=== PATIENT | male | born 1950 | race Caucasian/White ===

== ENCOUNTER 2020-08-25 13:17 | Outpatient (REF) | payer MEDICARE, MEDICAID, SELFPAY ==
--- NOTE | 2020-08-28 11:19 | MHC.AU.MED ---
Medical Clearance for Hearing Instrumentation Date: 08/28/20 Patient Name: Mehrdad Stokes Date of : [address] Fernandes, We have seen your patient on 08/25/2020 and have determined that they are a candidate for amplification (See accompanying report). Specifically, they would benefit from: Hearing aid use in both ears There is a statute that addresses Medical Evaluation Requirements prior to fitting a patient with a hearing aid. According to [place] statute [facility] CMR:6.03(1), (a) General. Except as provided in 265 CMR 6.03(1)(b), a teacher hearing impaired shall not sell a hearing aid unless the prospective user has presented to the teacher hearing impaired a written statement signed by a licensed physician that states that the patient's hearing loss has been medically evaluated and the patient may be considered a candidate for a hearing aid. The medical evaluation must have taken place within the preceding six months. Please note: Due to the [place] Statute referenced above, we cannot accept a signature other than that of a licensed physician. BUSINESS SYSTEMS LEAD and PA signatures cannot be accepted. I am in agreement with the above recommendation. There is no medical contraindication for hearing instrumentation. Physician Signature Date Physician Name (Printed)
--- NOTE | 2020-08-28 15:04 | MHC.AU.P13 ---
Adult Audiological Evaluation Date of Visit: 08/25/20 Reason for Appointment: History of hearing loss. Patient arrives to determine if there has been a change in hearing. Has hearing been tested previously?: Yes Previous Hearing Test Results: 12/15/2019 at this clinic- Moderate sloping to profound sensorineural hearing loss bilaterally Medical History: Medical History: Genetic Disorders Head Injury Otoscopy: Right Ear: Unremarkable Left Ear: Unremarkable Tympanometry: Right Ear: Normal Middle Ear System (Type A) Left Ear: Normal Middle Ear System (Type A) Hearing Evaluation: Transducer(s) Used: Insert Earphones Method: Conventional Audiometry Stimuli Used: Pure Tones Right Ear: Description of Hearing: Moderately-severe to profound sensorineural hearing loss Left Ear: Description of Hearing: Moderately-severe to profound sensorineural hearing loss High Frequency Audiometry: High Frequency Audiometry: Speech Awareness Threshold (SAT): Right Ear: 65 dBHL Left Ear: 70 dBHL Comparison: Compared to the most recent evaluation: Thresholds have decreased bilaterally. Recommendations: Recommendations: Audiological re-evaluation in one year. Hearing Aid Fitting will be scheduled when all materials arrive. Diagnosis: Primary Diagnosis: H90.3 Bilateral Sensorineural Hearing Loss Secondary Diagnosis: N/A Services Performed: Services Performed: Pure Tone- Air & Bone (CPT 12363) Speech Audiometry Threshold, with Speech Recognition (CPT 90153) Tympanometry (CPT 13544) Signature: Student/Clinical Fellow: No I have reviewed/agreed with student/fellow documentation: N/A Provider: Mike Wills, [facility]
== END 2020-08-25 13:18 | disposition home or self-care (01) ==
LOC: HO.SH 13:17
PROVIDERS: Visit Provider Internal Medicine
DX: H90.3 Sensorineural hearing loss, bilateral (principal)
CPT/HCPCS: 92553; 92555; 92567; 92591; V5275

== ENCOUNTER 2020-09-21 08:45 | Outpatient (REF) | payer MEDICARE, MEDICAID, SELFPAY ==
--- NOTE | 2020-09-21 10:14 | MHC.AU.P13 ---
Hearing Instrument Fitting- Adult- Binaural Date of Visit: 09/21/20 Hearing Instruments Dispensed: Right Ear: Healthcare Receptionist: Denise Model: Jemal 1600 R ITE Serial Number: [id number] Warranty: 10/05/2023 Battery Size: Rechargeable Type of Wax Guard: DENISE HEAR CLEAR Left Ear: Healthcare Receptionist: Denise Model: Jemal 1600 R ITE Serial Number: [id number] Warranty: 10/05/2023 Battery Size: Rechargeable Type of Wax Guard: DENISE HEAR CLEAR Accessories/Assistive Technology: T Custom Director Of [employer] #[id number] Summary of Fitting: Patient arrived for fitting, accompanied by his aide Nataly. Hearing aids appear to fit well. Feedback canceller was run. Experience level set to 2, as patient was visibly uncomfortable with any higher levels. Gain taken down an additional two steps for patient comfort. Patient appeared to hear his aide and myself well. Hearing aid care and use practiced and discussed. Patient was able to insert the left hearing aid correctly on the first try, but struggled with the right side and was beginning to get frustrated. Nataly said she would practice with him at home. Patient was able to place the hearing aids on the diving fisher correctly. Recommendations: Recommendations: Please call our clinic with any questions or concerns. Recommendations (Other): Hearing aid follow-up scheduled for 10/05/2020. Diagnosis Code(s): Primary Diagnosis: H90.3 Bilateral Sensorineural Hearing Loss Services Performed: Hearing Aid Evaluation and Earmold: Hearing Instrument Services: BCU-[id number] 2 Hearing Aid Dispensing: Binaural Dispensing Fee Fitting (Other): Fitting/Orientation/Checking of Hearing Aid Conformity Evaluation, Real Ear, Functional Testing Assorted Hearing Aid Service: Number of Individual Battery Cells: Packages of Batteries: Accessory Billing Place Snow: Signature: Provider: Mike Wills, CCC-A
== END 2020-09-21 08:46 | disposition home or self-care (01) ==
LOC: HO.HAP 08:45
PROVIDERS: PCP Internal Medicine; Referring Provider Internal Medicine; Visit Provider Internal Medicine
DX: Z46.1 Encounter for fitting and adjustment of hearing aid (principal)
CPT/HCPCS: V5011; V5020; V5160; V5260

== ENCOUNTER 2020-10-05 10:43 | Outpatient (REF) | payer MEDICARE, MEDICAID, SELFPAY | END 2020-10-05 10:44 | disposition home or self-care (01) | LOC: HO.HAP 10:43 | PROVIDERS: PCP Internal Medicine; Referring Provider Internal Medicine; Visit Provider Internal Medicine | DX: Z13.89 Encounter for screening for other disorder (principal) | CPT/HCPCS: 92700 ==

== ENCOUNTER 2021-01-30 15:55 | Outpatient (REF) | payer SELFPAY | END 2021-01-30 15:56 | disposition home or self-care (01) | LOC: HO.HAP 15:55 | PROVIDERS: Visit Provider Internal Medicine | DX: Z46.1 Encounter for fitting and adjustment of hearing aid (principal) | CPT/HCPCS: V5267 ==

== ENCOUNTER 2021-02-19 09:34 | Outpatient (REF) | payer MEDICARE, MEDICAID, SELFPAY | END 2021-02-19 09:35 | disposition home or self-care (01) | LOC: HO.SH 09:34 | PROVIDERS: Visit Provider Internal Medicine | DX: Z13.89 Encounter for screening for other disorder (principal) ==

== ENCOUNTER 2021-06-18 10:44 | Outpatient (REF) | payer MEDICARE, MEDICAID, SELFPAY | END 2021-06-18 10:45 | disposition home or self-care (01) | LOC: HO.HAP 10:44 | PROVIDERS: Visit Provider Internal Medicine | DX: Z13.89 Encounter for screening for other disorder (principal) ==

== ENCOUNTER 2021-06-26 09:40 | Outpatient (REF) | payer MEDICARE, MEDICAID, SELFPAY | END 2021-06-26 09:41 | disposition home or self-care (01) | LOC: HO.HAP 09:40 | PROVIDERS: Visit Provider Internal Medicine | DX: Z13.89 Encounter for screening for other disorder (principal) ==

== ENCOUNTER 2021-10-24 12:55 | Outpatient (REF) | payer MEDICARE, MEDICAID, SELFPAY ==
--- NOTE | 2021-10-24 13:14 | MHC.AU.P13 ---
Hearing Instrument Problem Date of Visit: 10/24/21 Right Ear: Mortar Mixer: Sukhdeep Model: Jemal 1600 R ITE Serial Number: [id number] Repair Warranty: 10/05/2023 Loss and Damage Warranty: 10/05/2023 Battery Size: Rechargeable Type of Wax Guard: SUKHDEEP HEAR CLEAR Dispensed By: [facility] Date of Fittin09/21/2020 Left Ear: Mortar Mixer: Sukhdeep Model: Jemal 1600 R ITE Serial Number: [id number] Repair Warranty: 10/05/2023 Loss and Damage Warranty: 10/05/2023 Battery Size: Rechargeable Type of Wax Guard: SUKHDEEP HEAR CLEAR Dispensed By: [facility] Date of Fittin09/21/2020 Follow-Up Summary: Hearing aids dropped off - not working. Both aids cleaned and wax guards replaced - now amplifying clearly. Recommendations: Recommendations: Hearing instrument follow-up or maintenance as needed. Diagnosis Code(s): Primary Diagnosis: H90.3 Bilateral Sensorineural Hearing Loss Signature: Provider: ESHA Santana-
== END 2021-10-24 12:56 | disposition home or self-care (01) ==
LOC: HO.HAP 12:55
PROVIDERS: Visit Provider Internal Medicine
DX: Z13.89 Encounter for screening for other disorder (principal)

== ENCOUNTER 2022-03-01 10:49 | Outpatient (REF) | payer MEDICARE, MEDICAID, SELFPAY | END 2022-03-01 10:50 | disposition home or self-care (01) | LOC: HO.HAP 10:49 | PROVIDERS: Visit Provider Internal Medicine | DX: Z13.89 Encounter for screening for other disorder (principal) ==

== ENCOUNTER 2022-09-11 14:12 | Outpatient (REF) | payer SELFPAY | END 2022-09-11 14:13 | disposition home or self-care (01) | LOC: HO.HAP 14:12 | PROVIDERS: Visit Provider Internal Medicine | DX: Z46.1 Encounter for fitting and adjustment of hearing aid (principal); H90.3 Sensorineural hearing loss, bilateral | CPT/HCPCS: V5267 ==

== ENCOUNTER 2022-12-25 11:04 | Outpatient (REF) | payer MEDICARE, MEDICAID, SELFPAY ==
--- NOTE | 2022-12-25 14:54 | MHC.AU.HA3 ---
Hearing Instrument Follow-Up- Binaural Date of Visit: 12/25/22 Right Ear: Make, Model, Color, Serial Number: Denise Joaquin 1600 ITE R, #[id number] Electrical Designer Repair Warranty: 10/05/2023 Electrical Designer Loss and Damage Warranty: 10/05/2023 Battery Size: Rechargeable Type of Wax Guard: DENISE HEAR CLEAR Dispensed By: [facility] Date of Fittin09/21/2020 Left Ear: Make, Model, Color, Serial Number: Denise Joaquin 1600 ITE R, #[id number] Electrical Designer Repair Warranty: 10/05/2023 Electrical Designer Loss and Damage Warranty: 10/05/2023 Battery Size: Rechargeable Type of Wax Guard: DENISE HEAR CLEAR Dispensed By: [facility] Date of Fittin09/21/2020 Follow-Up Summary: Patient and his caregiver report his hearing aids (Denise Jemal ITEs) are not working. The right side of the high school mathematics teacher is also not flashing green when the hearing aid is on it. He brought his previous hearing aids (Oticon Ting BTEs) that he has been using as backups. He reports the tubing has been falling out of the molds on the older instruments. The [facility] hearing aids and high school mathematics teacher were inspected. The left side is amplifying, but is very weak. The right side is not turning on. The Denise hearing aids and high school mathematics teacher were sent to [facility] for repair. On the Oticon instruments, the molds were retubed. They are functional and will serve as back-ups until the [facility] hearing aids return from repair. He was dispensed 12 batteries to get him by until his hearing aids return. Recommendations: Patient's residence will be contacted when materials have arrived. The [facility] hearing aids have no manual on/off button; therefore, to send them out for repair, I had to set them in Inspire to [place]. When they return, they will need to be set back to the 06/26/2021 settings. Diagnosis Code(s): Primary Diagnosis: H90.3 Bilateral Sensorineural Hearing Loss Signature: Provider: Gurpreet Wlils, [facility] [place]-[facility]
== END 2022-12-25 11:05 | disposition home or self-care (01) ==
LOC: HO.HAP 11:04
PROVIDERS: Visit Provider Internal Medicine
DX: Z46.1 Encounter for fitting and adjustment of hearing aid (principal); H90.3 Sensorineural hearing loss, bilateral
CPT/HCPCS: 92593; V5266

== ENCOUNTER 2023-01-03 13:43 | Outpatient (REF) | payer MEDICARE, MEDICAID, SELFPAY | END 2023-01-03 13:44 | disposition home or self-care (01) | LOC: HO.HAP 13:43 | PROVIDERS: Visit Provider Internal Medicine | DX: Z13.89 Encounter for screening for other disorder (principal) ==

== ENCOUNTER 2023-03-27 13:03 | Outpatient (REF) | payer SELFPAY | END 2023-03-27 13:04 | disposition home or self-care (01) | LOC: HO.HAP 13:03 | PROVIDERS: Visit Provider Internal Medicine | DX: Z46.1 Encounter for fitting and adjustment of hearing aid (principal); H90.3 Sensorineural hearing loss, bilateral | CPT/HCPCS: V5267 ==

== ENCOUNTER 2023-09-05 12:04 | Outpatient (REF) | payer MEDICARE, MEDICAID, SELFPAY ==
--- NOTE | 2023-09-05 14:36 | MHC.AU.HA3 ---
Hearing Instrument Follow-Up- Binaural Date of Visit: 09/05/23 Right Ear: Kj, Model, Color, Serial Number: Sukhdeep Joaquin 1600 ITE R SN: [id number] Color: Clear/[place] Long Term Repair Warranty: 10/05/2023 Long Term Loss and Damage Warranty: 10/05/2023 [facility] Service Plan: 09/21/2021 Battery Size: Rechargeable Type of Wax Guard: HearClear Dispensed By: [facility] Date of Fittin09/21/2020 Left Ear: Kj, Model, Color, Serial Number: Sukhdeep Paz ITE R SN: [id number] Color: Clear/[place] Long Term Repair Warranty: 10/05/2023 Long Term Loss and Damage Warranty: 10/05/2023 [facility] Service Plan: 09/21/2021 Battery Size: Rechargeable Type of Wax Guard: HearClear Dispensed By: [facility] Date of Fittin09/21/2020 Follow-Up Summary: Both Sukhdeep hearing aids, ring facer, cord, and wall plug as well as older Oticon Ting 2 BTE hearing aids were dropped off. The Sukhdeep hearing aids reportedly are not working and not holding a charge. Initially, the hearing aids were charging intermittently (LED light on ring facer would come on some times but not other times). However, the hearing aids and charging posts were extremely dirty and the wax guards were plugged. Cleaned both hearing aids and charging posts. Replaced wax guards. Connected to [employer] software and ran the diagnostic test with all components passing. After cleaning, hearing aids were charging appropriately in ring facer. The old hearing aids were dropped off and requested to be cleaned. Oticon Ting 2 BTEs (SNs: [id number] and [id number]) with acrylic skeleton ear molds. Cleaned and retubed. A listening check demonstrated the hearing aids are in good working order. Recommendations: Hearing instrument maintenance in 6 months, or sooner if needed. Please contact our clinic with any questions or concerns. Diagnosis Code(s): Primary Diagnosis: H90.3 Bilateral Sensorineural Hearing Loss Signature: Provider: Gurpreet Titus, [facility]
== END 2023-09-05 12:05 | disposition home or self-care (01) ==
LOC: HO.HAP 12:04
PROVIDERS: PCP Internal Medicine; Visit Provider Internal Medicine
DX: Z46.1 Encounter for fitting and adjustment of hearing aid (principal); H90.3 Sensorineural hearing loss, bilateral
CPT/HCPCS: 92593; 99499

== ENCOUNTER 2023-09-11 15:07 | Outpatient (REF) | payer MEDICARE, MEDICAID, SELFPAY | END 2023-09-11 15:08 | disposition home or self-care (01) | LOC: HO.HAP 15:07 | PROVIDERS: Visit Provider Internal Medicine | DX: Z13.89 Encounter for screening for other disorder (principal) ==

== ENCOUNTER 2023-10-15 10:32 | Outpatient (REF) | payer MEDICARE, MEDICAID, SELFPAY ==
--- NOTE | 2023-10-15 11:47 | MHC.AU.HA3 ---
Hearing Instrument Follow-Up- Binaural Date of Visit: 10/15/23 Right Ear: Kj, Model, Color, Serial Number: Sukhdeep Joaquin 1600 ITUmesh R SN: [id number] Color: Clear/[place] Building Construction Superintendent Repair Warranty: 10/05/2023 Building Construction Superintendent Loss and Damage Warranty: 10/05/2023 [facility] Service Plan: 09/21/2021 Battery Size: Rechargeable Type of Wax Guard: HearClear Dispensed By: [facility] Date of Fittin09/21/2020 Left Ear: Kj, Model, Color, Serial Number: Sukhdeep Joaquin 1600 NATEE R SN: [id number] Color: Clear/[place] Building Construction Superintendent Repair Warranty: 10/05/2023 Building Construction Superintendent Loss and Damage Warranty: 10/05/2023 [facility] Service Plan: 09/21/2021 Battery Size: Rechargeable Type of Wax Guard: HearClear Dispensed By: [facility] Date of Fittin09/21/2020 Follow-Up Summary: Mehrdad was accompanied by a staff member who reported that his new hearing aids are too high tech for him due to bluetooth capabilities. Other staff members have reportedly paired Vanessas hearing aids to their cellphones to adjust the volume; however, then Mehrdad hears their phone notifications and phone calls. He also brought his old BTE hearing aids for cleaning and retubing. Cleaned new hearing aids - replaced wax guards and microphone covers. Cleaned old hearing aids and ear molds. Replaced tubing. Attempted to connect new hearing aids to Inspire for programming adjustments; however, Vanessas new hearing aids were not charged and only connected for a short period of time. Mehrdad has difficulty reporting his perception of the sound quality consistently - one moment it is too loud and the next it is too soft. Recommended updated hearing test and full reprogramming of hearing aids with real ear measures to ensure appropriate programming for hearing loss without having to rely on Mehrdad's report to adjust the settings. Also advised not to connect hearing aids to staff phones. Recommendations: Doctor's order from PCP will be requested for updated hearing test. Ensure new hearing aids are fully charged prior to appointment. Diagnosis Code(s): Primary Diagnosis: H90.3 Bilateral Sensorineural Hearing Loss Signature: Provider: Gurpreet Titus, [facility]
== END 2023-10-15 10:33 | disposition home or self-care (01) ==
LOC: HO.HAP 10:32
PROVIDERS: Visit Provider Internal Medicine
DX: Z46.1 Encounter for fitting and adjustment of hearing aid (principal); H90.3 Sensorineural hearing loss, bilateral
CPT/HCPCS: 92593; 99499; V5266

== ENCOUNTER 2023-12-05 10:22 | Outpatient (REF) | payer MEDICARE, MEDICAID, SELFPAY ==
--- NOTE | 2023-12-05 15:51 | MHC.AU.HA3 ---
Hearing Instrument Follow-Up- Binaural Date of Visit: 12/05/23 Right Ear: Kj, Model, Color, Serial Number: Sukhdeep Joaquin 1600 ITE R SN: [id number] Color: Clear/[place] Drying Frame Operator Repair Warranty: 10/05/2023 Drying Frame Operator Loss and Damage Warranty: 10/05/2023 [facility] Service Plan: 09/21/2021 Battery Size: Rechargeable Type of Wax Guard: HearClear Dispensed By: [facility] Date of Fittin09/21/2020 Left Ear: Kj, Model, Color, Serial Number: Sukhdeep Joaquin 1600 ITE R SN: [id number] Color: Clear/[place] Drying Frame Operator Repair Warranty: 10/05/2023 Drying Frame Operator Loss and Damage Warranty: 10/05/2023 [facility] Service Plan: 09/21/2021 Earmold/Dome/CShell/SlimTip: Type of Wax Guard: HearClear Dispensed By: [facility] Date of Fittin09/21/2020 Follow-Up Summary: Mehrdad is here for re-evaluation and reprogramming of his hearing aids. No change in hearing found today. Reprogrammed to NAL-NL2 and verified real ear measurements. Decreased gain to exp lvl 1 as he found full prescription to be far too loud. He reports being able to hear voices well but constantly struggles with the TV. Discussed TV ears with the staff member from his home, who said another resident has them so she will see if it's an option for Mehrdad. When cleaning aids, found several wax guard screens behind existing wax guards. Wrote note to staff and referenced relevant page in user guide on how to change/clean. Recommendations: Recommendations: Hearing instrument follow-up or maintenance as needed. Patient will call if problems persist. Diagnosis Code(s): Primary Diagnosis: H90.3 Bilateral Sensorineural Hearing Loss Signature: Provider: Mike Dodd, [facility]
== END 2023-12-05 10:23 | disposition home or self-care (01) ==
LOC: HO.SH 10:22
PROVIDERS: Visit Provider Internal Medicine
DX: Z01.118 Encounter for examination of ears and hearing with other abnormal findings (principal); H90.3 Sensorineural hearing loss, bilateral
CPT/HCPCS: 92552; 92593; 99499; V5020

== ENCOUNTER 2024-02-11 14:49 | Outpatient (REF) | payer MEDICARE, MEDICAID, SELFPAY ==
--- NOTE | 2024-02-11 15:08 | MHC.AU.HA3 ---
Hearing Instrument Follow-Up- Binaural Date of Visit: 02/11/24 Right Ear: Kj, Model, Color, Serial Number: Sukhdeep Joaquin 1600 ITUmesh R SN: [id number] Color: Clear/[place] Orthopedic Cast Specialist Repair Warranty: 10/05/2023 Orthopedic Cast Specialist Loss and Damage Warranty: 10/05/2023 [facility] Service Plan: 09/21/2021 Battery Size: Rechargeable Equipment Validation Specialist/Slim Tube: Earmold/Dome/CShell/SlimTip: Type of Wax Guard: HearClear Dispensed By: [facility] Date of Fittin09/21/2020 Left Ear: Kj, Model, Color, Serial Number: Sukhdeep Joaquin 1600 ITUmesh R SN: [id number] Color: Clear/[place] Orthopedic Cast Specialist Repair Warranty: 10/05/2023 Orthopedic Cast Specialist Loss and Damage Warranty: 10/05/2023 [facility] Service Plan: 09/21/2021 Battery Size: Rechargeable Equipment Validation Specialist/Slim Tube: Earmold/Dome/CShell/SlimTip: Type of Wax Guard: HearClear Dispensed By: [facility] Date of Fittin09/21/2020 Follow-Up Summary: Both aids and tie fastener dropped off with complaint of makes noises/ can't hear . Found both aids functional upon arrival despite wax visible in was guards. Cleaned and checked aids, replaced wax guards, listening check positive. Mehrdad's ears should be checked for wax if he continues to feel that he doesn't hear anything from the hearing aids. Recommendations: Recommendations: Hearing instrument follow-up or maintenance as needed. Diagnosis Code(s): Primary Diagnosis: H90.3 Bilateral Sensorineural Hearing Loss Signature: Provider: Gurpreet Arellano, [facility]-A
== END 2024-02-11 14:50 | disposition home or self-care (01) ==
LOC: HO.HAP 14:49
PROVIDERS: Visit Provider Internal Medicine
DX: Z13.89 Encounter for screening for other disorder (principal)

== ENCOUNTER 2024-02-12 13:13 | Outpatient (REF) | payer MEDICARE, MEDICAID, SELFPAY | END 2024-02-12 13:14 | disposition home or self-care (01) | LOC: HO.HAP 13:13 | PROVIDERS: Visit Provider Internal Medicine | DX: Z46.1 Encounter for fitting and adjustment of hearing aid (principal); H90.3 Sensorineural hearing loss, bilateral | CPT/HCPCS: 92593; 99499 ==

== ENCOUNTER 2024-05-21 10:12 | Outpatient (REF) | payer MEDICARE, MEDICAID, SELFPAY ==
--- NOTE | 2024-05-21 12:32 | MHC.AU.HA3 ---
Hearing Instrument Follow-Up- Binaural Date of Visit: 05/21/24 Right Ear: Model Kj, Color, Serial Number: Sukhdeep Joaquin 1600 ITE R SN: [id number] Color: Clear/[place] [facility] Nurse Repair Warranty: 10/05/2023 [facility] Care [facility] Nurse Loss and Damage Warranty: 10/05/2023 [facility] Service Plan: 09/21/2021 Battery Size: Rechargeable Oil Filters Inspector/Slim Tube: Earmold/Dome/CShell/SlimTip: Type of Wax Guard: HearClear Dispensed By: [facility] Date of Fittin09/21/2020 Left Ear: Model Kj, Color, Serial Number: Sukhdeep Joaquin 1600 ITE R SN: [id number] Color: Clear/[place] Post [facility] Nurse Repair Warranty: 10/05/2023 Post [facility] Care [facility] Nurse Loss and Damage Warranty: 10/05/2023 [facility] Service Plan: 09/21/2021 Battery Size: Rechargeable Oil Filters Inspector/Slim Tube: Earmold/Dome/CShell/SlimTip: Type of Wax Guard: HearClear Dispensed By: [facility] Date of Fittin09/21/2020 Follow-Up Summary: Mehrdad is here with staff member Marianne Clark). His Sukhdeep aids and back up Oticon BTEs were all brought in, none working. Found wax guards clogged on Sukhdeep ITEs, tubes stiff and clogged on BTEs. Cleaned all aids- replaced Sukhdeep wax guards and sonia covers. Cleaned earmolds, changed tubing. Listening check positive for all hearing aids. Checked Mehrdad's ears for wax, all clear. Mehrdad continued to express concern about the hearing aids not working or shutting off. Advised that everything is working well now. Advised Keely to bring hearing aids and mule packer in to go to child adolescent psychiatrist for repair if problems persist in the next few days despite cleaning. Recommendations: Recommendations: Hearing instrument follow-up or maintenance as needed. Diagnosis Code(s): Primary Diagnosis: H90.3 Bilateral Sensorineural Hearing Loss Signature: Provider: Gurpreet Arellano, CCC-A
== END 2024-05-21 10:13 | disposition home or self-care (01) ==
LOC: HO.HAP 10:12
PROVIDERS: Visit Provider Internal Medicine
DX: Z46.1 Encounter for fitting and adjustment of hearing aid (principal); H90.3 Sensorineural hearing loss, bilateral
CPT/HCPCS: 92593; 99499

== ENCOUNTER 2024-05-25 10:30 | Outpatient (REF) | payer MEDICARE, MEDICAID, SELFPAY ==
--- NOTE | 2024-05-25 11:06 | MHC.AU.HA3 ---
Hearing Instrument Follow-Up- Binaural Date of Visit: 05/25/24 Right Ear: Kj, Model, Color, Serial Number: Sukhdeep Joaquin 1600 ITE R SN: [id number] Color: Clear/[place] Receiving Lead Repair Warranty: 10/05/2023 Receiving Lead Loss and Damage Warranty: 10/05/2023 [facility] Service Plan: 09/21/2021 Battery Size: Rechargeable Type of Wax Guard: HearClear Dispensed By: [facility] Date of Fittin09/21/2020 Left Ear: Kj, Model, Color, Serial Number: Sukhdeep Joaquin 1600 ITE R SN: [id number] Color: Clear/[place] Receiving Lead Repair Warranty: 10/05/2023 Receiving Lead Loss and Damage Warranty: 10/05/2023 [facility] Service Plan: 09/21/2021 Battery Size: Rechargeable Type of Wax Guard: HearClear Dispensed By: [facility] Date of Fittin09/21/2020 Follow-Up Summary: Sukhdeep hearing aids, stave saw operator, cord, and wall plug all dropped off requesting they be sent to the corporate banking officer, as recommended at previous appointment. Reportedly still not working. Sent hearing aids, stave saw operator, cord, and wall plug to Sukhdeep. Mehrdad's box and user guides in repair drawer. Bill repairs to [facility] upon arrival. Recommendations: Patient will be contacted when materials have arrived. Diagnosis Code(s): Primary Diagnosis: H90.3 Bilateral Sensorineural Hearing Loss Signature: Provider: Gurpreet Titus, [facility]
== END 2024-05-25 10:31 | disposition home or self-care (01) ==
LOC: HO.HAP 10:30
PROVIDERS: Visit Provider Internal Medicine
DX: Z13.89 Encounter for screening for other disorder (principal)

== ENCOUNTER 2024-06-07 13:35 | Outpatient (REF) | payer MEDICARE, MEDICAID, SELFPAY | END 2024-06-07 13:36 | disposition home or self-care (01) | LOC: HO.HAP 13:35 | PROVIDERS: Visit Provider Internal Medicine | DX: Z46.1 Encounter for fitting and adjustment of hearing aid (principal); H90.3 Sensorineural hearing loss, bilateral | CPT/HCPCS: V5014; V5267 ==

== ENCOUNTER 2025-05-05 12:36 | Outpatient (REF) | payer MEDICARE, MEDICAID, SELFPAY ==
--- OUTSIDE RECORDS SUMMARY | 2025-05-05 14:31 | XMS_ITS | Patient Health Record ---
[facility] [address] [place] [address] Support Name Relationship Address Phone FACILITY, FACILITY Emergency Contact [address] [place] [address] Unavailable JHONATHAN OAKES Guarantor Unknown [phone] Reason For Referral No Information Plan Of Treatment No Information Insurance Providers Payer Name Payer Address Payer Phone Subscriber Number Group Number Insured Name Patient Relationship to Insured Coverage Start Date Coverage End Date MEDICARE [address] [employer] [place] [facility] [place] [address] [id number] JHONAHTAN OAKES Self - patient is the insured [place] [address] [place] [address] [id number] JHONATHAN OAKES Self - patient is the insured
== END 2025-05-05 12:37 | disposition home or self-care (01) ==
LOC: HO.HAP 12:36
PROVIDERS: Visit Provider Internal Medicine
DX: Z13.89 Encounter for screening for other disorder (principal)

== ENCOUNTER 2025-05-23 13:21 | Outpatient (REF) | payer MEDICARE, MEDICAID, SELFPAY ==
--- OUTSIDE RECORDS SUMMARY | 2025-05-23 13:48 | XMS_ITS | Patient Health Record ---
[facility] Address [address] [place] [address] Support Name Relationship Address Phone FACILITY, FACILITY Emergency Contact [address] [place] [address] Unavailable JHONATHAN OAKES Guarantor Unknown [phone] Reason For Referral No Information Plan Of Treatment No Information Insurance Providers Payer Name Payer Address Payer Phone Subscriber Number Group Number Insured Name Patient Relationship to Insured Coverage Start Date Coverage End Date MEDICARE [address] [place] [address] [id number] JHONATHAN OAKES Self - patient is the insured [place] [address] [place] [address] [id number] JHONATHAN OAKES Self - patient is the insured
--- OUTSIDE RECORDS SUMMARY | 2025-05-23 13:48 | XMS_ITS | Clinical Summary ---
Author Organization [facility] Address [address] [place] [address] Phone Care Team Providers Care Continuity Clerk Name Role Phone Shannan Fernandes MD Primary Care Provider [phone] Allergies No known active allergies Medications acetaminophen (TYLENOL) 325 mg tablet take 2 TABLETS by MOUTH every 6 hours needed FOR VERBILIZED PAIN AND DISCOMFORT TEMP OVER 100.5 nte 3000mg IN 24 HOURS 4 Active ammonium lactate (AMLACTIN) 12 % cream apply A thin layer TO affected AREA ON SKIN TWICE DAILY NEEDED 4 Active aspirin 81 mg EC tablet take 1 tablet by mouth daily in the am 5 Active atorvastatin (LIPITOR) 40 mg tablet 5 Active bacitracin zinc 500 unit/gram ointment APPLY A SMALL AMOUNT TOPICALLY TO scratches/abras ion call MD IF not healed/crusted IN 72hrs] 4 Active brimonidine (ALPHAGAN) 0.2 % ophthalmic solution Instill 1 drop into both eyes three times a day 4 Active calcium carbonate-vitam in D3 600 mg-20 mcg (800 unit) tablet TAKE 1 tablet by mouth twice a day; FOR OSTEOPENIA 4 Active divalproex (DEPAKOTE ER) 250 mg 24 hr tablet TAKE 2 TABLET BY MOUTH IN THE am AND TAKE 1 TABLET BY MOUTH in the pm 4 Active fluticasone propionate (FLONASE) 50 mcg/actuation nasal spray Administer 1 spray into each nostril 2 (two) times a day. 4 Active Adult Tussin DM 10-100 mg/5 mL syrup Take 10 mL by mouth every 4 (four) hours if needed. for cough 4 Active latanoprost (XALATAN) 0.005 % ophthalmic solution Instill 1 drop into both eyes every night 4 Active levETIRAcetam (KEPPRA) 500 mg tablet 5 Active metoprolol succinate (TOPROL-XL) 25 mg 24 hr tablet take 1 tablet by mouth once daily in the am 4 Active bqmmcakf-tzt-fg on fum-folic ac 7.5 mg iron-400 mcg tablet Take 1 tablet by mouth 1 (one) time each day in the morning. 4 Active nystatin (MYCOSTATIN) 100,000 unit/gram powder apply SMALL AMOUNT topically TO GROIN TWICE DAILY 4 Active topiramate (TOPAMAX) 25 mg tablet Take 1 tablet (25 mg total) by mouth. bedtime 5 Active Immunizations Name Administration Dates Next Due COVID-19 (Moderna/Spikevax) 12yo and older 10/07 Social History Tobacco Use Types Packs/Day Years Used Date Smoking Tobacco: Never Assessed Sex and Gender Information Value Date Recorded Sex Assigned at Not on file Legal Sex Male 11:03 AM EDT Gender Identity Not on file Sexual Orientation Not on file Last Filed Vital Signs Vital Sign Reading Time Taken Comments Blood Pressure - - Pulse - - Temperature - - Respiratory Rate - - Oxygen Saturation - - Inhaled Oxygen Concentration - - Weight 83.9 kg (185 lb) 12/08/2024 10:01 AM EST Height 152.4 cm (5') 12/08/2024 10:01 AM EST Body Mass Index 36.13 12/08/2024 10:01 AM EST Plan of Treatment Upcoming Encounters Date Type Department Care Team (Late st Contact Info) Description 07/14/2025 1:30 PM EDT Office Visit Orthopedic Surgery - [place] [address] [phone] Jd Millard, DPM [address] [address] Health Maintenance Due Date Last Done Comments DTaP,Tdap,and Td Vaccines (1 - Tdap) 1969 Zoster Vaccines (1 of 2) 1998 Pneumococcal Vaccine: 50+ Years (2 of 2 - PCV) 02/26/2023 02/26/2022 RSV Immunization Adult Patients (1 - 1-dose 75+ series) 2023 Cholesterol Screening (Lipid Panel) 06/18/2024 Depression Screening 06/18/2024 Falls Risk Assessment 06/18/2024 Hepatitis C Screening 06/18/2024 Medicare Annual Wellness Visit 06/18/2024 Social Influencers of Health Screening 06/18/2024 COVID-19 Vaccine ( season) 2024 10/07/2022, 12/11/2021, 02/05/2021, Additional history exists Influenza Vaccine (Season Ended) 2025 09/18/2023, 09/24/2022, 09/09/2022, Additional history exists HIB Vaccines Aged Out No longer eligi ble based on patient's age to complete this topic HPV Vaccines Aged Out No longer eligi ble based on patient's age to complete this topic Hepatitis A Vaccines Aged Out No long er eligible based on patient's age to complete this topic Hepatitis B Vaccines Aged Out No long er eligible based on patient's age to complete this topic IPV Vaccines Aged Out No longer eligi ble based on patient's age to complete this topic MMR Vaccines Aged Out No longer eligi ble based on patient's age to complete this topic Meningococcal ACWY Vaccine Aged Out N o longer eligible based on patient's age to complete this topic Meningococcal B Vaccine Aged Out No l onger eligible based on patient's age to complete this topic RSV Immunization Patients Under 20 months Aged Out No longer eligible based on patient's age to complete this topic Varicella Vaccines Aged Out No longer eligible based on patient's age to complete this topic Insurance MEDICARE MEDICAID - [place] Care Teams Continuity Clerk Relationship Specialty Start Date End Date Shannan Fernandes MD [address] [place] [phone] PCP - General 01/27/24
--- OUTSIDE RECORDS SUMMARY | 2025-05-23 13:48 | XMS_ITS | Patient Health Record ---
Author Organization [facility] Address [address] [facility] [address] [place] [phone] Care Team Providers Care Senior Net C Developer Name Role Phone Rausch Gunner Unavailable [phone] Reason For Referral No Information Plan Of Treatment No Information
== END 2025-05-23 13:22 | disposition home or self-care (01) ==
LOC: HO.HAP 13:21
PROVIDERS: Visit Provider Internal Medicine
DX: Z46.1 Encounter for fitting and adjustment of hearing aid (principal); H90.3 Sensorineural hearing loss, bilateral
CPT/HCPCS: 92593; 99499; V5014

== ENCOUNTER 2025-08-03 11:24 | Outpatient (REF) | payer SELFPAY ==
--- OUTSIDE RECORDS SUMMARY | 2025-08-03 14:32 | XMS_ITS | Patient Health Record ---
Author Organization [facility] Address [address] [place] [phone] Care Team Providers Care Prefitter Name Role Phone Gunner Rausch Unavailable [phone] Reason For Referral No Information Plan Of Treatment No Information
--- OUTSIDE RECORDS SUMMARY | 2025-08-03 14:32 | XMS_ITS | Patient Health Record ---
Author Organization [facility] Address [address] [facility] [address] [place] [address] Support Name Relationship Address Phone FACILITY, FACILITY Emergency Contact [address] [place] [address] Unavailable JHONATHAN OAKES Guarantor Unknown [phone] Reason For Referral No Information Plan Of Treatment No Information Insurance Providers Payer Name Payer Address Payer Phone Subscriber Number Group Number Insured Name Patient Relationship to Insured Coverage Start Date Coverage End Date MEDICARE [address] [employer] [place] [address] [phone] [id number] JHONATHAN OAKES Self - patient is the insured [place] [address] [place] [address] [id number] JHONATHAN OAKES Self - patient is the insured
--- OUTSIDE RECORDS SUMMARY | 2025-08-03 14:32 | XMS_ITS | Clinical Summary ---
Author Organization [facility] Address [address] [place] [address] Phone Care Team Providers Care Manager Wound Name Role Phone Shannan Fernandes MD Primary Care Provider Allergies No known active allergies Medications acetaminophen [...] once daily in the am 4 Active vdnotrnu-btt-ds on fum-folic ac 7.5 mg iron-400 mcg [...] Care Team (Late st Contact Info) Description 08/30/2025 10:15 AM EDT Office Visit Orthopedic Surgery - [place] [address] [phone] Jd Millard, DPM [address] [phone] Health Maintenance Due Date Last Done Comments DTaP,Tdap,and Td Vaccines (1 - Tdap) 1969 Zoster Vaccines (1 of 2) 1998 Pneumococcal Vaccine: 50+ Years (2 of 2 - PCV) 02/26/2023 02/26/2022 RSV Immunization Adult Patients (1 - 1-dose 75+ series) 2023 Cholesterol Screening (Lipid Panel) 06/18/2024 Falls Risk Assessment 06/18/2024 Hepatitis C Screening 06/18/2024 Medicare Annual Wellness Visit 06/18/2024 Social Influencers of Health Screening 06/18/2024 Depression Screening 11/24/2024 COVID-19 Vaccine ( season) 2025 10/07/2022, 12/11/2021, 02/05/2021, Additional history exists Influenza Vaccine (#1) 2025 , 09/24/2022, 09/09/2022, Additional history exists HIB Vaccines [...] Insurance MEDICARE MEDICAID - [place] Care Teams Manager Wound Relationship Specialty Start Date End Date Shannan Fernandes MD [address] [facility] [address] [place] [address] PCP - General 01/27/24
== END 2025-08-03 11:25 | disposition home or self-care (01) ==
LOC: HO.HAP 11:24
PROVIDERS: Visit Provider Internal Medicine
DX: Z46.1 Encounter for fitting and adjustment of hearing aid (principal); H90.3 Sensorineural hearing loss, bilateral
CPT/HCPCS: V5267